=== PATIENT | male | born 1965 | race Caucasian/White ===

== ENCOUNTER 2017-02-22 10:15 | Emergency (ER) | payer MEDICAID ==
[~2017-02-22] VITALS: Ht 182.9 cm; Wt 95.3 kg
[2017-02-22] MEDS ORDERED: SODIUM CHLORIDE 0.9% 1,000 ML IV ONE (11:33)
[2017-02-22] MEDS ORDERED: TETANUS-DIPTH-ACEL PERTUSSIS 0.5ML SYRG IM ONE (11:45)
[2017-02-22 11:50] LABS: Basophils # (auto) 0 uL; Basophils % (auto) 0.1 % (0.0-2.0); CONDITION Y; Eosinophils # (auto) 0 uL; Eosinophils % (auto) 0.3 % (0.0-7.0); Hematocrit 51.9 % (41.0-53.0); Hemoglobin 17.1 g/dL (13.5-17.5); Lymphocytes # (auto) 1.1 uL; Lymphocytes % (auto) 8.8 % (10.0-50.0); Mean Corpuscular Hemoglobin 31.6 pg (28.0-32.0); Mean Corpuscular Hgb Conc. 33.1 g/dL (32.0-36.0); Mean Corpuscular Volume 95.5 fL (80.0-100.0); Mean Platelet Volume 7.9 fL (7.4-10.4); Monocytes # (auto) 0.8 uL; Monocytes % (auto) 6.5 % (0.0-12.0); Neutrophils % (auto) 84.3 % (37.0-80.0); Platelet Count (auto) 271 10^3/uL (140-450); Red Cell Distribution Width 15.6 % (11.6-16.0); White Blood Cell 13.1 10^3/uL (4.4-10.8)
[2017-02-22 12:00] VITALS: BP 123/73
[2017-02-22 12:10] LABS: INR 0.98 (0.9-1.15); Partial Thromboplastin Time 27.3 sec (22.64-33.71); Prothrombin Time 10.7 sec (9.37-12.3)
[2017-02-22] MEDS ORDERED: HYDROcodone-ACET 10/325MG TAB PO ONE (12:15)
[2017-02-22 12:25] LABS: Albumin 3.7 g/dL (3.4-5.0); Alkaline Phosphatase 64 U/L (45-117); Anion Gap 8 (5-15); Aspartate Aminotransferase 51 U/L (15-37); BUN/Creatinine Ratio 11.7; Bilirubin, Total 0.5 mg/dL (0.2-1.0); Blood Urea Nitrogen 11 mg/dL (7-18); Carbon Dioxide 31 mmol/L (21-32); Chloride 100 mmol/L (98-107); GFR African American 109 mL/min; GFR Non-African American 90 mL/min; Glucose 89 mg/dL (74-106); Potassium 4.3 mmol/L (3.5-5.1); Sodium 139 mmol/L (136-145); Total Protein 7.3 g/dL (6.4-8.2)
[2017-02-22] MEDS ORDERED: cefTRIAXone 1GM/50ML D5W 50 ML IV ONE (13:15)
[2017-02-22] MEDS ORDERED: cefTRIAXone W LIDOCAINE 1 GM IM IM ONE (13:15)
== END 2017-02-22 16:04 | disposition home or self-care (01) ==
LOC: ER 10:15
DX: S01.01XA Laceration without foreign body of scalp, initial encounter (principal); I10 Essential (primary) hypertension; R55 Syncope and collapse; W22.8XXA Striking against or struck by other objects, initial encounter; Y93.89 Activity, other specified; Y92.89 Other specified places as the place of occurrence of the external cause; Y99.8 Other external cause status
CPT/HCPCS: 12004; 36415; 70450; 71010; 80053; 84484; 85025; 85610; 85730; 90471; 90715; 96361; 96365; 99285; J0696

== ENCOUNTER 2017-02-27 13:54 | Emergency (ER) | payer MEDICAID ==
[~2017-02-27] VITALS: Ht 190.5 cm; Wt 93.9 kg
[2017-02-27 14:16] VITALS: BP 123/95
== END 2017-02-27 14:47 | disposition home or self-care (01) ==
LOC: ER 13:54
DX: S01.91XD Laceration without foreign body of unspecified part of head, subsequent encounter (principal); X58.XXXD Exposure to other specified factors, subsequent encounter

== ENCOUNTER 2017-03-04 14:52 | Emergency (ER) | payer MEDICAID ==
[~2017-03-04] VITALS: Ht 182.9 cm; Wt 95.3 kg
[2017-03-04 15:05] VITALS: BP 122/83
== END 2017-03-04 19:00 | disposition home or self-care (01) ==
LOC: ER 14:54
DX: S01.01XD Laceration without foreign body of scalp, subsequent encounter (principal); I10 Essential (primary) hypertension; X58.XXXD Exposure to other specified factors, subsequent encounter; Y99.8 Other external cause status; Y92.89 Other specified places as the place of occurrence of the external cause

== ENCOUNTER → 2019-11-05 | Emergency (ER) | payer MEDICAID ==
[~2019-11-05] VITALS: Ht 182.9 cm; Wt 95.3 kg
[~2019-11-05] MED LIST: ALUM & MAG HYDROX-SIMETH LIQ(MAALOX) 30 ML PO ONE; DONNATAL 5ml ORAL Elix (BELLADONNA ALK-PHENOBARB) PO ONE; LIDOCAINE VISCOUS 2% 15ML UD PO ONE; SODIUM CHLORIDE 0.9% 1,000 ML IV ONE
[2019-11-05 10:07] LABS: Basophils # (auto) 0 10 ^3/uL (0-0.2); Eosinophils # (auto) 0.1 10 ^3/uL (0-0.8); Eosinophils % (auto) 1.6 % (0.0-7.0); Lymphocytes # (auto) 1.6 10 ^3/uL (0.4-5.4); Monocytes # (auto) 0.6 10 ^3/uL (0-1.3); Neutrophils # (auto) 3.7 10 ^3/uL (1.6-8.6); Red Cell Distribution Width 17.4 % (11.8-14.3)
[2019-11-05 10:08] LABS: Basophils % (auto) 0.6 % (0.0-2.0); Hemoglobin 19.3 g/dL (13.5-17.5); Lymphocytes % (auto) 26.3 % (10.0-50.0); Mean Corpuscular Hemoglobin 33.5 pg (28.0-32.0); Mean Corpuscular Hgb Conc. 33.5 g/dL (32.0-36.0); Mean Corpuscular Volume 100.1 fL (80.0-100.0); Monocytes % (auto) 10.7 % (0.0-12.0); Neutrophils % (auto) 60.8 % (37.0-80.0); Nucleated Red Blood Cells % 0.3 %; Platelet Count (auto) 217 10^3/uL (140-450); Red Blood Cells 5.76 10^6/uL (4.5-5.90)
[2019-11-05 10:10] LABS: Hematocrit 57.6 % (41.0-53.0)
[2019-11-05 10:33] LABS: Albumin 3.8 g/dL (3.4-5.0); Anion Gap 4 (5-15); Blood Urea Nitrogen 10 mg/dL (7-18); Calcium 8.6 mg/dL (8.5-10.1); Carbon Dioxide 28 mmol/L (21-32); Chloride 106 mmol/L (98-107); Glucose 101 mg/dL (74-106); Potassium 4.1 mmol/L (3.5-5.1); Sodium 138 mmol/L (136-145)
[2019-11-05 10:38] LABS: Alanine Aminotransferase 53 U/L (16-61); Alkaline Phosphatase 61 U/L (45-117); Aspartate Aminotransferase 47 U/L (15-37); BUN/Creatinine Ratio 11.4; GFR African American 117 mL/min; GFR Non-African American 96 mL/min; Total Protein 7.5 g/dL (6.4-8.2)
[2019-11-05 10:38] LABS: Urine Bacteria NONE SEEN /hpf (None Seen); Urine Blood Negative /uL (Negative); Urine Mucus FEW (None Seen); Urine Specific Gravity 1.012 (1.001-1.035); Urine WBC 1 /hpf (0 - 3)
[2019-11-05 10:54] LABS: Alcohol, Urine < 3.0 mg/dL (0-5); Amphetamine Screen, Urine NEGATIVE (NEGATIVE); Benzodiazephine Screen, Urine NEGATIVE (NEGATIVE); Cannabinoid Screen, Urine POSITIVE (NEGATIVE); Cocaine Screen, Urine NEGATIVE (NEGATIVE); Opiate Scree,Urine NEGATIVE (NEGATIVE)
[2019-11-05 11:01] LABS: Barbiturate Scree,Urine NEGATIVE (NEGATIVE); Phencyclidine Screen, Urine NEGATIVE (NEGATIVE)
[2019-11-05 13:43] VITALS: BP 123/89
== END | disposition home or self-care (01) ==
LOC: ER 09:09
DX: K29.70 Gastritis, unspecified, without bleeding (principal); K52.9 Noninfective gastroenteritis and colitis, unspecified; E86.0 Dehydration; F12.10 Cannabis abuse, uncomplicated; I10 Essential (primary) hypertension; F17.210 Nicotine dependence, cigarettes, uncomplicated
CPT/HCPCS: 36415; 71046; 74176; 80053; 80307; 81001; 84484; 85025; 86677; 93005; 96360; 99285; J7030

== ENCOUNTER 2020-11-09 06:45 | Emergency (ER) | payer MEDICAID ==
[~2020-11-09] VITALS: Ht 182.9 cm; Wt 93.0 kg
[2020-11-09 07:29] VITALS: BP 111/63
== END 2020-11-09 08:08 | disposition home or self-care (01) ==
LOC: ER 06:45
DX: I10 Essential (primary) hypertension (principal); F17.210 Nicotine dependence, cigarettes, uncomplicated

== ENCOUNTER 2023-08-31 06:11 | Emergency (ER) | payer MEDICAID ==
[~2023-08-31] VITALS: Ht 182.9 cm; Wt 96.9 kg
[2023-08-31 07:18] VITALS: BP 135/95; PULSE 99; RESP 16; TEMP 97.6; O2SAT 96
[2023-08-31] MEDS ORDERED: PRED20TA2 PO (07:26)
[2023-08-31] MEDS ORDERED: TRAM50TA2 PO (07:26)
[2023-08-31] MEDS: KETOROLAC TROMETH 60MG/2ML VIAL IM ONE (07:29)
== END 2023-08-31 07:35 | disposition home or self-care (01) ==
LOC: ER 06:11
DX: G89.29 Other chronic pain (principal); M54.50 Low back pain, unspecified; I10 Essential (primary) hypertension; F17.210 Nicotine dependence, cigarettes, uncomplicated; Z79.899 Other long term (current) drug therapy
CPT/HCPCS: 96372; 99283; J1885

== ENCOUNTER 2023-09-06 11:24 | Emergency (ER) | payer MEDICAID ==
[~2023-09-06] VITALS: Ht 190.5 cm; Wt 95.7 kg
[~2023-09-06 11:24] MED LIST changes: -ALUM & MAG HYDROX-SIMETH LIQ(MAALOX) 30 ML PO ONE; -DONNATAL 5ml ORAL Elix (BELLADONNA ALK-PHENOBARB) PO ONE; -LIDOCAINE VISCOUS 2% 15ML UD PO ONE; +PRED20TA2 PO; -SODIUM CHLORIDE 0.9% 1,000 ML IV ONE; +TRAM50TA2 PO
[2023-09-06 12:16] VITALS: BP 141/84; PULSE 74; RESP 16; TEMP 97.5; O2SAT 97
[2023-09-06] MEDS ORDERED: TRAM50TA2 PO (12:21)
== END 2023-09-06 12:38 | disposition home or self-care (01) ==
LOC: ER 11:24
DX: M54.50 Low back pain, unspecified (principal); G89.29 Other chronic pain; Z76.0 Encounter for issue of repeat prescription; F17.210 Nicotine dependence, cigarettes, uncomplicated; F12.10 Cannabis abuse, uncomplicated; F41.9 Anxiety disorder, unspecified; F41.8 Other specified anxiety disorders; I10 Essential (primary) hypertension; M51.36 Other intervertebral disc degeneration, lumbar region